=== PATIENT | male | born 1955 | race African-American/Black ===

== ENCOUNTER 2025-01-09 07:50 | Outpatient (REF) | payer MEDICARE, SELFPAY ==
--- OUTSIDE RECORDS SUMMARY | 2025-01-09 07:55 | XMS_ITS | Encounter Summary ---
Author Organization [facility] Address [address] [place] [address] Care Team Providers Care Pricing Intern Name Role Phone Anahi Tian MD Unavailable [phone] Pcp, No Primary Care Provider Unavailabl e Sebastian Jose DO Primary Care Provider [phone] Sebastian Jose DO Unavailable [phone] Kennedy Garcia MD Primary Care Provider Moira Bartholomew MD Primary Care Provider + Encounter Details Date Type Department Care Team (Late st Contact Info) Description 03/29/2024 Scanned Document [address] [place] [phone] Pcp, No Social History Tobacco Use Types Packs/Day Years Used Date Smoking Tobacco: Never Smokeless Tobacco: Never Alcohol Use Standard Drinks/Week Comments Yes 0 (1 standard drink = 0.6 oz pur e alcohol) socially PHQ-2 Answer Date Recorded PHQ-2 Total Score 1 10/28/2023 Sex and Gender Information Value Date Recorded Sex Assigned at Male 12/20/2023 7:08 AM EDT Legal Sex Male 12:36 PM EDT Gender Identity Male 12/20/2023 7:08 AM EDT Sexual Orientation Heterosexual (straight) 12/19 7:08 AM EDT documented as of this encounter Plan of Treatment Upcoming Encounters Date Type Department Care Team (Late st Contact Info) Description 02/02/2025 11:40 AM EDT Consult [facility] [address] [phone] Kennedy Garcia MD [address] [address] Zakia Pleitez PA-C [address] [address] 03/22/2025 11:30 AM EDT Office Visit [facility] Department of Family Medicine [place] [address] [place] [address] Moira Bartholomew MD [address] [place] [address] documented as of this encounter Visit Diagnoses Not on filedocumented in this encounter Care Teams Pricing Intern Relationship Specialty Start Date End Date Pcp, No PCP - General General Medicine 03/21/24 03/30/24 Sebastian Jose DO PCP - General Internal Medicine 03/31/24 06/25/24 Sebastian Jose DO [address] [place] [address] PCP - [employer] Medicare Attributed 02/10/24 Kennedy Garcia MD [address] [place] [address] PCP - General Internal Medicine 06/26/24 11/22/24 Moira Bartholomew MD [address] [place] [id number] PCP - General Internal Medicine 11/23/24 Anahi Tian MD [address] [place] [address] 08/26/23 documented as of this encounter
--- OUTSIDE RECORDS SUMMARY | 2025-01-09 07:55 | XMS_ITS | Clinical Summary ---
Author Organization [address] Address [address] [place] [id number] Care Team Providers Care Rotating Equipment Engineer Name Role Phone Referring, No Primary Care Provider Unavailabl e Allergies Active Allergy Reactions Criticality Noted Date Comments Aldair Inhibitors Anaphylaxis,Aaliyah Tse ma ling High 11/11/2020 Iodine Anaphylaxis High 06/30/2011 Shellfish Containing Products Anaphylaxis High 01/21/2016 Medications amLODIPine (NORVASC) 10 mg tablet Take 1 tablet (10 mg total) by mouth daily. 06/12/2024 Active hydroCHLOROthia zide 12.5 mg tablet Take 1 tablet (12.5 mg total) by mouth daily. Active losartan (COZAAR) 100 mg tablet Take 1 tablet (100 mg total) by mouth daily. 06/12/2024 Active sertraline (ZOLOFT) 100 mg tablet Take 1 tablet (100 mg total) by mouth daily. 10/04/2024 Active ofloxacin (FLOXIN) 0.3 % otic solution 5 drops bid to affected ear x 7 days 5 mL 11/11/2024 Active Active Problems Problem Noted Date Diagnosed Date Balance problem 11/11/2024 Dizziness 11/11/2024 Bleeding from left ear 11/11/2024 Benign essential hypertension 10/09/2024 Acute cough 10/09/2024 COVID-19 10/09/2024 Dementia (HC Code) 10/28/2023 Hypertension 04/02/2016 Encounters Date Type Department Care Team Description 11/11/2024 3:15 PM EDT Office Visit [facility] [address] [place] [address] John Lyon, PA Dizziness (Primary Dx); Balance problem; Bleeding from left ear from Last 3 Months Immunizations Immunization Administration Dates Next Due Influenza, quad, adjuvanted, 0.5mL, preservative free 04/29/2022 Tdap 11/18/2015 Family History Relation Name Status Comments Father Mother Social History Tobacco Use Types Packs/Day Years Used Date Smoking Tobacco: Never Smokeless Tobacco: Never Tobacco Cessation:Counseling Given: Not Answered Alcohol Use Standard Drinks/Week Comments Yes 0 (1 standard drink = 0.6 oz pur e alcohol) socially Sex and Gender Information Value Date Recorded Sex Assigned at Not on file Legal Sex Male 1:26 AM EDT Gender Identity Not on file Sexual Orientation Not on file Last Filed Vital Signs Vital Sign Reading Time Taken Comments Blood Pressure 138/85 11/11/2024 3:31 PM EDT Pulse 77 11/11/2024 3:31 PM EDT Temperature 36.7 C (98 F) 11/11/2024 3:31 PM EDT Respiratory Rate 16 11/11/2024 3:31 PM EDT Oxygen Saturation 99% 11/11/2024 3:31 PM EDT Inhaled Oxygen Concentration - - Weight 111.1 kg (245 lb) 11/11/2024 3:31 PM EDT Height - - Body Mass Index - - Plan of Treatment Health Maintenance Due Date Last Done Comments HIV screening 1969 Diabetes screening 1974 Hepatitis C screening 1974 Lipid disorder screening 1996 Colon cancer screening, Colonoscopy 2001 Pneumococcal Vaccine (50+ years) (1 of 1 - PCV) 2006 Shingles vaccine (Shingrix) (1 of 2 - Shingrix (RZV) 2 Dose Standard Series) 2006 Covid-19 vaccine series ( - season) 2024 08/16/2020, 07/19/2020 Influenza vaccine 03/12/2025 04/29/2022 Tetanus adult (Td q 10,TDAP once) 11/17/2025 11/18/2015 RSV Immunization (1 - 1-dose 75+ series) 2031 Meningococcal Vaccine Aged Out No lopez aung eligible based on patient's age to complete this topic Procedures Procedure Name Priority Date/Time Associated Diagnosis Comments POCT GLUCOSE ([facility]) Routine 11/11/2024 4:01 PM EDT Dizziness from Last 3 Months Results * POCT Glucose(In-Clinic) (11/11/2024 4:01 PM EDT) POC Glucose 76 60 - 250 mg/dL POC Kit Lot Number [id number] POC Expiration Date [id number] Blood 11/11/2024 4:01 PM EDT John COSTELLO POINT OF CARE ORDERS W/FUTURE F inal Result from Last [address] [place] [place] [address] [facility] KAREN [place] MGD Care Teams Rotating Equipment Engineer Relationship Specialty Start Date End Date Referring, No PCP - General 10/09/24
--- OUTSIDE RECORDS SUMMARY | 2025-01-09 07:55 | XMS_ITS | Encounter Summary ---
Author Organization [facility] Address [address] [place] [address] Care Team Providers Care Optician Apprentice Dispensing Name Role Phone Anahi Tian MD Primary Care Provider [phone] Anahi Tian MD Primary Care Provider [phone] Encounter Details Date Type Department Care Team (Late st Contact Info) Description 08/29/2020 Orders Only [facility] Department of CAT Scan Imaging [address] [place] [address] Surendra Del Real MD [address] [place] [address]-[place] [phone] Social History Tobacco Use Types Packs/Day Years Used Date Smoking Tobacco: Never Smokeless Tobacco: Never Sex and Gender Information Value Date Recorded Sex Assigned at Male 08/06/2020 7:01 PM EST Legal Sex Male 2:30 PM EST Gender Identity Male 08/06/2020 7:01 PM EST Sexual Orientation Straight 08/06/2020 7: 01 PM EST COVID-19 Exposure Response Date Recorded In the last month, have you been in contact with someone who was confirmed or suspected to have Coronavirus / COVID-19? No / Unsure 08/26/2020 1:59 PM EST documented as of this encounter Plan of Treatment Not on file documented as of this encounter Visit Diagnoses Not on filedocumented in this encounter Care Teams Optician Apprentice Dispensing Relationship Specialty Start Date End Date Anahi Tian MD [address] [place] [address] PCP - General Family Medicine 08/01/20 11/03/20 Anahi Tian MD [address] [place] [phone] PCP - General Family Medicine 11/04/20 documented as of this encounter
--- NOTE | 2025-01-09 08:14 | ECG_ITS ---
Test Reason : CHECK QTC Blood Pressure : */* mmHG Vent. Rate : 71 BPM Atrial Rate : 71 BPM P-R Int : 200 ms QRS Dur : 132 ms QT Int : 410 ms P-R-T Axes : 49 -48 46 degrees QTcB Int : 445 ms Poor data quality, interpretation may be adversely affected Normal sinus rhythm Left axis deviation Non-specific intra-ventricular conduction block Minimal voltage criteria for LVH, may be normal variant ( Aric product ) Abnormal ECG No previous ECGs available Referred By: Tara Leal Electronically Signed By:
[2025-01-09 08:40] LABS: MANUAL DIFF FLAG NO
[2025-01-09 08:59] LABS: Hematocrit 40.1 % (42.0-52.0); Hemoglobin 13.3 g/dl (14.0-18.0); Imm Gran Abs Auto 0.01 X10*3/uL (0.00-0.03); Imm Gran Pct Auto 0.2 % (0.0-0.4); Lymphocytes Absolute Auto 1.1 X10*3/uL (1.2-4.9); Mean Corpuscular HGB Conc 33.2 g/dl (31.0-36.0); Mean Corpuscular Hemoglobin 28.2 pg (27.0-33.0); Mean Corpuscular Volume 85.0 fL (80.0-98.0); NRBC Abs Auto 0.000 X10*3/uL (0.0-0.012); NRBC Pct Auto 0.0 /100WBC (0.0-0.2); Platelet Count 152 X10*3/uL (160-400); Red Blood Count 4.72 X10*6/uL (4.60-5.80); White Blood Count 5.5 X10*3/uL (4.8-10.8)
[2025-01-09 09:09] LABS: Hemoglobin A1C 116.5982 umol/L; Total Hemoglobin (HGBA1C) 3580.0009 umol/L
[2025-01-09 09:39] LABS: Alanine Aminotransferase 24 U/L (0-40); Albumin Level 4.3 g/dL (3.5-5.0); Alkaline Phosphatase 78 U/L (39-117); Anion Gap 11 (12-20); Aspartate Amino Transferase 23 U/L (5-37); Blood Urea Nitrogen 14 mg/dL (9-16); Calcium 9.1 mg/dL (8.4-10.2); Carbon Dioxide 28 mmol/L (22-29); Chloride 107 mmol/L (96-108); Cholesterol 200 mg/dL (<200); Estimated Glomerular Filt Rate > 60; HDL Cholesterol 95 mg/dL (>40); Iron 79 mcg/dL (45-160); Magnesium 2.1 mg/dL (1.6-2.6); Percent Iron Saturation 30 % (15-50); Potassium 3.6 mmol/L (3.3-5.1); Sodium 142 mmol/L (135-145); Total Iron Binding Capacity 267 mcg/dL (228-428); Total Protein 7.3 g/dL (6.5-8.0); Triglycerides 106 mg/dL (<150); Unsaturated Iron Binding 188 ug/dL
[2025-01-09 10:03] LABS: Free T4 (Free Thyroxine) 0.91 ng/dL (0.71-1.85); Thyroid Stimulating Hormone 1.63 uIU/mL (0.32-4.0)
[2025-01-09 10:04] LABS: Folate 10.9 ng/mL (> or = 4.0); Vitamin B12 433 pg/mL (200-900)
== END 2025-01-09 07:51 | disposition home or self-care (01) ==
LOC: HO.LAB 07:50
PROVIDERS: Visit Provider Psychiatry & Neurology Psychiatry
DX: F33.9 Major depressive disorder, recurrent, unspecified (principal); Z13.1 Encounter for screening for diabetes mellitus
CPT/HCPCS: 36415; 80053; 80061; 82306; 82607; 82746; 83036; 83090; 83540; 83735; 84425; 84439; 84443; 85025; 93005

== ENCOUNTER 2025-01-19 09:00 | Outpatient (RCR) | payer MEDICARE, SELFPAY ==
[2025-01-01 11:56] VITALS: BP 120/70; PULSE 60; TEMP 36.3
[2025-01-01 11:59] VITALS: BMI 31.4
--- NOTE | 2025-01-01 14:26 | HO.PS.ADMBH ---
HPI Date of Service: 01/01/25 Chief Complaint: depression,anxiety,SI Sources of Information: patient interviewed, chart reviewed and crisis/core team assessment reviewed HPI Narrative: This is the 1st PHP admission for this 61-year-old male with history of depression, anxiety, obsessive compulsiveness, who was recently discharged from LOC status post suicide attempt overdose on SSRI. Patient has been struggling with depression in the past few years in the context of marital strife stemming from his finding out he had a pornography habit. Past Psychiatric History: I[facility] x2: 10/2024 to [facility], in 2023 to [facility] No prior PHP, respite, detox/rehab admissions [facility] x2 SIB: denies Aggression or antisocial behaviors: denies Denies legal history Pertinent developmental hx: neuropsychological testing done 07/2024 Previous diagnoses: mild cognitive changes consistent with chronic depression Psychiatrist: none (will be starting with Rose Lucas) Therapist: none PCP: Dr. Mcmahon Previous trials: CURRENT MEDICATIONS: sertraline 100 mg qd amlodipine 10 mg qd losartan 100 mg qam melatonin 6 mg qhs [facility] Medical History (Updated 02/28/25 @ 09:21 by Tara Leal MD) Detached retina, bilateral Lower back pain Osteoarthritis Prostate CA Hypertension Narrative: Hypertension Prostate cancer Cataract s/p L hip replacement Pending sleep study Seizures: denies Concussions/TBI: denies Ht: 6'1 Wt: 245 lbs ALL: shellfish, lisinopril Surgical History (Updated 01/01/25 @ 11:50 by Celine Vazquez RN) History of hip surgery Family History: Sister with depression, AUD No known suicides in family Social History: Youngest of 8 children with adult children lives at home with Diagnostics Vital Signs (24Hr): Vital Signs - 24 hr 01/01/25 11:56 Temperature 97.4 F Pulse Rate 60 Blood Pressure 120/70 BMI result Body Mass Index 31.4 Meds/Allergies Meds Home Medications ?Medication ?Instructions ?Recorded ?Confirmed ?Type amlodipine 10 mg tablet 10 mg PO QAM 01/01/25 01/01/25 History cyclobenzaprine 5 mg tablet 5 mg PO TID 01/01/25 01/01/25 History hydrochlorothiazide 12.5 mg capsule 12.5 mg PO DAILY 01/01/25 01/01/25 History losartan 100 mg tablet 100 mg PO QAM 01/01/25 01/01/25 History melatonin 3 mg disintegrating 6 mg PO BEDTIME 01/01/25 01/01/25 History tablet potassium chloride 10 mEq 20 meq PO DAILY 01/01/25 01/01/25 History tablet,extended release sertraline 50 mg tablet 100 mg PO DAILY 01/01/25 01/01/25 History Allergies Allergies Allergy/AdvReac Type Severity Reaction Status Date / Time lisinopril Allergy Anaphylaxis, Verified 01/01/25 11:56 dizziness, nausea, eyes, lips, throat swelling. shellfish derived (shellfish) Allergy Anaphylaxis, Verified 01/01/25 11:56 dizziness, nausea, eyes, lips, throat swelling. Mental Status Exam Mental Status Exam Narrative: Alert, oriented, in no acute distress. Calm, cooperative, friendly, polite. Mood depressed, affect appropriate. Speech normal, talkative. Thought process circumstantial. Thought content related to stressors, ruminative, denies any helplessness, hopelessness or SI.? No aggressive ideation or HI. No paranoia or delusional content elicited. No evidence of psychosis. Insight and judgment fair-good. Assessment & Plan Assessment & Plan (1) MDD (major depressive disorder), recurrent severe, without psychosis: Status: Acute Code(s): F33.2 - Major depressive disorder, recurrent severe without psychotic features (2) CIPRIANO (generalized anxiety disorder): Status: Acute Code(s): F41.1 - Generalized anxiety disorder (3) Post traumatic stress disorder (PTSD): Status: Acute Code(s): F43.10 - Post-traumatic stress disorder, unspecified Plan Admit to [facility] VS reviewed: afebrile, BP 120/70;?60 bpm start trazodone 50 mg qhs prn sleep continue regular medications for now Routine lab work as indicated EKG, routine for baseline QTc for medication considerations as indicated UDS as indicated MassPat reviewed Continue to monitor as per protocol Patient educated on: diagnosis and medication risk/benefits Informed Consent: understands Reason for continued partial hosp. stay Substantial Risk for: inability to function and med/psych decompensation Certification I certify that partial hospital treatment is medically necessary due to the symptoms and problems resulting from the patient's mental illness and the failure to treat the patient at the partial hospital level of care would likely result in the patient requiring inpatient psychiatric care which could not be prevented at a less intensive level of care. Time Spent With Patient Time: Total time managing care of this patient today _60___ minutes.
--- NOTE | 2025-01-01 14:41 | PC.ADMIT ---
Patient is a 69 year old retired male who was referred to [facility] by [facility] inpatient behavioral health unit where he was admitted from 12/12-12/19/24 s/p overdose with Sertraline. This is the patients second inpatient LOC admission. According to records patient had a previous inpatient hospitalization in July 2023 at [facility]. Patient reportedly was found unresponsive by his . Per records in the ER patient was Hypertensive, CXR bibasilar atelectasis. EKG with First degree AV block with widening QRS Suggestive of LV hypertrophy. QTC 468. Patient currently is alert and oriented x4. He is calm and cooperative. he presented with depressed mood and anxious affect. he denied SI, no HI. He was given a copy of his safety plan if needed. He reports hospitalization was helpful. Reports he is trying to work on things with his . He stated they are currently living together. wants to work on his negative thoughts while at [facility] and not isolate. Medications updated with patient and discharge paperwork from [facility]. Patient reports he is now taking 100 mg of Seroquel daily and that is the only medication change since discharged from the hospital. patient also stated he was getting Trazodone for sleep while in the hospital however this was not prescribed to him upon discharge. He stated this medication was helpful for sleep. Dr. Leal is aware. Patient denied any issues with substances.
--- NOTE | 2025-01-04 15:48 | HO.PHP ---
Client's case has been opened and reviewed in team.
--- NOTE | 2025-01-09 13:36 | PC.NURSE ---
Addendum entered by Celine Vazquez RN 01/09/25 15:42: Norma from patient's PCP's office called and left a message stating she did receive the EKG results that were faxed over. She will have PCP review results. Original Note: Reviewed with Dr. Leal EKG results on 01/09/25-Sinus Rhythm with first degree A-V block, L axis deviation, non specific intra Ventricular conduction block, Minimal voltage criteria for LVH, may be a normal varient (Aric product). Also reviewed EKG results from [facility] paperwork dated 12/11/24 with similar readings. Faxed copy of both EKG tests done on 01/09/25 and 12/11/24 to patient's PCP's office of Dr. Bartholomew for review. Spoke to Norma from patient's PCP office of Dr. Bartholomew to confirm that they received the EKG results. Awaiting call back from Norma.
--- NOTE | 2025-01-11 12:57 | HO.PHPPROGNO ---
Subjective Subjective Date of Service: 01/11/25 Reason For Visit: depression,anxiety,SI Interim History: Patient was seen for follow-up. and I are still having intense interactions... Continues to discuss details of their arguments, discusses their relationship dynamic and various marriage stressors, mostly relating to what he sees as his 's disapproval of his behaviors. He shares that he had suggested to his his porn addiction could be related to Bipolar disorder. We explore this history in great detail, but there was little history suggestive of any manic/hypomanic episodes, in fact chronic impulsivity, social disinhibition, loquaciousness, overly detailed and circuitous communication style, difficulty making concise points..these characteristic are chronic (vs episodic)in nature, not associated with insomnia/agiation/incr motor activity, and more suggestive of ADHD sx than related to bipolar illness. Complains of getting worked up especially in the evenings, in the context of their interactions, and makes relaxing very difficult. Trazodone helps with sleep, but would be too tiring to take any earlier in [facility] afternoon/evening. No hx of AUD or NAKUL. Denies h/h/SI or AI/HI. Medication Compliance: Yes Side effects from medications: No Attending Groups: Yes Review of Systems Acute medical concerns: No Mental Status Exam Mental Status Exam Narrative: Alert, oriented, in no acute distress. Calm, cooperative, friendly, polite. Mood stable, affect appropriate. Speech normal, talkative. Thought process circumstantial. Thought content related to stressors, future-oriented, denies any helplessness, hopelessness or SI.? No aggressive ideation or HI. No paranoia or delusional content elicited. No evidence of psychosis. Insight and judgment fair-good. Diagnostics Vital Signs (24Hr): BMI result Body Mass Index 31.4 Assessment & Plan Assessment & Plan (1) MDD (major depressive disorder), recurrent episode: Status: Acute Code(s): F33.9 - Major depressive disorder, recurrent, unspecified (2) CIPRIANO (generalized anxiety disorder): Status: Acute Code(s): F41.1 - Generalized anxiety disorder (3) Post traumatic stress disorder (PTSD): Status: Acute Code(s): F43.10 - Post-traumatic stress disorder, unspecified Plan continue PHP start clonazepam 0.5 mg qd prn anxiety continue trazodone 50 mg qhs prn sleep continue sertraline 100 mg qd continue regular medications Routine lab work as indicated EKG, routine for baseline QTc for medication considerations as indicated UDS as indicated VS reviewed: afebrile, BP 120/70;?60 bpm Continue to monitor Patient educated on: diagnosis and medication risk/benefits Informed Consent: understands Reason for contiued partial hosp. stay Substantial Risk for: med/psych decompensation Certification I certify that partial hospital treatment is medically necessary due to the symptoms and problems resulting from the patient's mental illness and the failure to treat the patient at the partial hospital level of care would likely result in the patient requiring inpatient psychiatric care which could not be prevented at a less intensive level of care. Total time managing care of this patient today __30__ minutes. Discharge Plan Discharge Attending provider: Tara Leal Medications: New trazodone 50 mg tablet 25 - 50 mg PO BEDTIME PRN (Reason: sleep) Qty: 30 0RF clonazepam [Klonopin] 0.5 mg tablet 0.5 - 1 mg PO DAILY PRN (Reason: anxiety, sleep) Qty: 14 0RF Continued potassium chloride 10 mEq Tablet Extended Release 20 meq PO DAILY Rx Instructions: Take two tabs by mouth daily. amlodipine 10 mg tablet 10 mg PO QAM losartan 100 mg tablet 100 mg PO QAM sertraline 50 mg Tablet 100 mg PO DAILY Patient Comments: Patient stated he is now taking 100 mg daily of Sertraline instead of 50 mg daily. Reports that is the only medication change since discharge from [facility]. cyclobenzaprine 5 mg Tablet 5 mg PO TID Rx Instructions: Take three times a day for 7 days. melatonin 3 mg Tablet,Disintegrating 6 mg PO BEDTIME hydrochlorothiazide 12.5 mg Capsule 12.5 mg PO DAILY Stand Alone Forms: Patient Portal Discharge page Patient Education: Depression (DC) Print Language: Sammarinese
--- NOTE | 2025-01-16 10:13 | PC.NURSE ---
Dr. Leal is aware of patient's lab results including: HGB 13.3, HCT 40.1, PLT 152, EOS PCt Auto 5.1, Lymph Abs Auto 1.1, GAP 11, Cholesterol 200.
--- NOTE | 2025-01-19 14:08 | HO.PHPPROGNO ---
Subjective Subjective Date of Service: 01/19/25 Reason For Visit: depression,anxiety,SI Interim History: Patient seen for follow-up, anticipating discharge at the end of program today.? Continues to deal with marital issues. Reports no acute issues or concerns. Medication compliant, medications well-tolerated. Denies any adverse effects.? Mood is stable.? Denies any hopelessness or SI. Denies thoughts of harming self or others at this time. Denies any aggressive ideation or HI. Denies any paranoia or AH or VH. Sleep, appetite, energy stable. Medication Compliance: Yes Side effects from medications: No Attending Groups: Yes Review of Systems Acute medical concerns: No Mental Status Exam Mental Status Exam Narrative: Alert, oriented, in no acute distress. Calm, cooperative, friendly, polite. Mood stable, affect appropriate. Speech normal, talkative. Thought process circumstantial. Thought content related to stressors, future-oriented, denies any helplessness, hopelessness or SI.? No aggressive ideation or HI. No paranoia or delusional content elicited. No evidence of psychosis. Insight and judgment fair-good. Diagnostics Vital Signs (24Hr): BMI result Body Mass Index 31.4 Assessment & Plan Assessment & Plan (1) MDD (major depressive disorder), recurrent episode: Status: Acute Code(s): F33.9 - Major depressive disorder, recurrent, unspecified (2) CIPRIANO (generalized anxiety disorder): Status: Acute Code(s): F41.1 - Generalized anxiety disorder (3) Post traumatic stress disorder (PTSD): Status: Acute Code(s): F43.10 - Post-traumatic stress disorder, unspecified Plan Discharge from [facility] Continue regular medications Refills sent to pharmacy Will defer further medication management to outpatient provider *Safety plan reviewed *Discharge diagnoses, treatment course, discharge plan have been reviewed with patient (including medication regime, medication management, potential side effects) as well as treatment rationale were also revisited *Discharge paperwork signed and given to patient, copy sent for scanning to chart Patient educated on: diagnosis and medication risk/benefits Informed Consent: understands Reason for contiued partial hosp. stay Substantial Risk for: stable for discharge Certification I certify that partial hospital treatment is medically necessary due to the symptoms and problems resulting from the patient's mental illness and the failure to treat the patient at the partial hospital level of care would likely result in the patient requiring inpatient psychiatric care which could not be prevented at a less intensive level of care. Total time managing care of this patient today __20__ minutes. Discharge Plan Discharge Attending provider: Tara Leal Medications: New trazodone 50 mg tablet 25 - 50 mg PO BEDTIME PRN (Reason: sleep) Qty: 30 0RF clonazepam [Klonopin] 0.5 mg tablet 0.5 - 1 mg PO DAILY PRN (Reason: anxiety, sleep) Qty: 14 0RF Continued potassium chloride 10 mEq Tablet Extended Release 20 meq PO DAILY Rx Instructions: Take two tabs by mouth daily. amlodipine 10 mg tablet 10 mg PO QAM losartan 100 mg tablet 100 mg PO QAM sertraline 50 mg Tablet 100 mg PO DAILY Patient Comments: Patient stated he is now taking 100 mg daily of Sertraline instead of 50 mg daily. Reports that is the only medication change since discharge from [facility]. cyclobenzaprine 5 mg Tablet 5 mg PO TID Rx Instructions: Take three times a day for 7 days. melatonin 3 mg Tablet,Disintegrating 6 mg PO BEDTIME hydrochlorothiazide 12.5 mg Capsule 12.5 mg PO DAILY Stand Alone Forms: Patient Portal Discharge page Patient Education: Depression (DC) Print Language: Kittitian
== END 2025-01-19 23:59 | disposition home or self-care (01) ==
LOC: HO.PHPA 09:00
PROVIDERS: Visit Provider Psychiatry & Neurology Psychiatry
DX: F33.2 Major depressive disorder, recurrent severe without psychotic features (principal); F41.1 Generalized anxiety disorder; F43.10 Post-traumatic stress disorder, unspecified; Z79.899 Other long term (current) drug therapy
CPT/HCPCS: 90791; 90853

== ENCOUNTER → 2025-01-19 09:00 | Outpatient (BNV) | payer MEDICARE, SELFPAY | PROVIDERS: Visit Provider Psychiatry & Neurology Psychiatry | DX: F33.9 Major depressive disorder, recurrent, unspecified (principal); F41.1 Generalized anxiety disorder; F43.10 Post-traumatic stress disorder, unspecified | CPT/HCPCS: 99212 ==